=== PATIENT | female | born 1990 | race Caucasian/White ===

== ENCOUNTER 2019-03-03 07:45 | Day surgery (SDC) | payer OTHER ==
[2019-03-03] MEDS: BUPIVACAINE 0.25% (MPF) 30 ML INJ INJ
[2019-03-03] MEDS: LACTATED RINGER'S 1,000 ML IV (09:05)
[2019-03-03] MEDS ORDERED: BUPIVACAINE 0.25% (MPF) 30 ML INJ (10:39)
[2019-03-03] MEDS ORDERED: PROPOFOL 100 ML (10:56)
[2019-03-03] MEDS ORDERED: LIDOCAINE 2% (SDV) 5 ML INJ (10:57)
[2019-03-03] MEDS ORDERED: ROCURONIUM 50 MG INJ (10:58)
[2019-03-03] MEDS ORDERED: DEXAMETHASONE 4 MG/ML 5 ML INJ (11:00)
[2019-03-03] MEDS ORDERED: ONDANSETRON 4 MG INJ (11:00)
[2019-03-03] MEDS ORDERED: CEFAZOLIN 1 GM INJ (11:00)
[2019-03-03] MEDS ORDERED: hydrALAzine 20 MG INJ IV (11:30)
[2019-03-03] MEDS ORDERED: HYDROmorphONE 1 MG/5 ML IV SYRINGE IV ×3 (11:30)
[2019-03-03] MEDS ORDERED: LABETALOL HCL 20MG INJ IV (11:30)
[2019-03-03] MEDS ORDERED: EPHEDrine 25 MG/5 ML SYG IV (11:30)
[2019-03-03] MEDS ORDERED: FENTAnyl 50 MCG/ML VIAL IV ×2 (11:30)
[2019-03-03] MEDS ORDERED: ONDANSETRON 4 MG INJ IV (11:30)
[2019-03-03] MEDS ORDERED: ALBUTEROL 0.083% (NEB) 2.5 MG/3 ML AMP HHN (11:30)
[2019-03-03] MEDS ORDERED: MEPERIDINE 25 MG INJ IV (11:30)
[2019-03-03] MEDS ORDERED: DIPHENHYDRAMINE 50 MG INJ IV (11:30)
[2019-03-03] MEDS ORDERED: METOCLOPRAMIDE 10 MG INJ IV (11:30)
[2019-03-03] MEDS ORDERED: OXYCODONE/ACETAMINOPHEN (5/325) TAB PO ×2 (11:30)
[2019-03-03] MEDS ORDERED: MIDAZOLAM 1 MG/ML 2 ML INJ IV (11:30)
[2019-03-03] MEDS ORDERED: SUGAMMADEX SODIUM 200 MG/2 ML VIAL IV (11:38)
[2019-03-03] MEDS: FENTAnyl 50 MCG/ML VIAL IV ×2 (12:03→12:08)
== END 2019-03-03 13:26 | disposition home or self-care (01) ==
LOC: SDS 07:45
DX: J35.01 Chronic tonsillitis (principal)
CPT/HCPCS: 42826; 88305